=== PATIENT | female | born 1970 | race Caucasian/White ===

== ENCOUNTER → 2017-10-10 | Outpatient (CLI) | payer BC ==
--- NOTE | 2017-10-10 09:28 | RAD ---
Examination: Ultrasound pelvis History: History of painful, heavy periods Comparison: None available Findings: The uterus measures 8.5 x 5.2 x 4.3 cm. The right ovary measures 1.7 x 2.3 x 1.2 cm. The left ovary measures 2.2 x 1.6 x 2.0 cm. Blood flow identified in the right and left ovaries. Endometrium measures 6.1 mm in thickness. There is a 3.2 cm heterogeneous echogenicity identified in the uterus posteriorly likely a fibroid. Impression: 1. 3.2 cm heterogeneous echogenicity identified in the posterior uterus likely fibroid. 2. Minimally prominent endometrium.
== END | disposition home or self-care (01) ==
LOC: US 07:48
PROVIDERS: ATTEND Physician Assistant Medical
DX: N92.0 Excessive and frequent menstruation with regular cycle (principal); N93.8 Other specified abnormal uterine and vaginal bleeding
CPT/HCPCS: 76830; 76856